=== PATIENT | female | born 1975 | race Caucasian/White ===

== ENCOUNTER → 2021-08-25 | Outpatient (CLI) | payer OTHER ==
[~2021-08-25] MED LIST: LOMOTIL 2.5-0.1 EACH PO; ROBITUSSIN AC480 ML PO; VENTOLIN HFA 66.7 GM INH
== END ==
LOC: RAD 14:28
DX: M54.50 Low back pain, unspecified (principal); M47.816 Spondylosis without myelopathy or radiculopathy, lumbar region
CPT/HCPCS: 72100